=== PATIENT | male | born 1980 | race Caucasian/White ===

== ENCOUNTER 2016-10-24 19:20 | Emergency (ER) | payer SELFPAY ==
[~2016-10-24] VITALS: Ht 180.3 cm; Wt 100.0 kg
--- OUTSIDE RECORDS SUMMARY | 2016-10-24 19:26 | XMS REPORT | Summary of Care ---
Author Author Naseem Romero M.D. Organization Unknown Address Unknown Phone Unavailable Care Team Providers Care Quality Assurance Supervisor Final Name Role Phone Naseem Romero M.D. Unavailable Unavailable Naseem Romero Unavailable Unavailable Unavailable Unavailable Functional Status Name Dates Details Functional status health issues are not documented Status: Name Dates Details Cognitive status health issues are not documented Status: Problems Name Dates Details Cerumen impaction (380.4, H61.20) Status: Active Chest pain (786.50, R07.9) Status: Active Medications Name Dates Details Doxycycline Hyclate 100 MG Oral Capsule TAKE 1 CAPSULE EVERY 12 HOURS DAILY. Quantity: 20 Refills: 2 Naesem Romero M.D. Start 04-May-2016 Active Chantix Starting Month Mario 0.5 MG X 11 & 1 MG X 42 Oral Tablet TAKE ONE 0.5MG TABLET DAILY ON DAYS 1-3, THEN ONE 0.5MG TABLET TWICE DAILY ON DAYS 4-7, THEN ONE 1MG TABLET TWICE DAILY THEREAFTER. Quantity: 1 Refills: 0 Naseem Romero M.D. Start 04-May-2016 Active Allergies and Adverse Reactions Name Dates Details No Known Drug Allergies (Allergy) Status: Active Procedures Procedure Dates Details BASIC METABOLIC PROFILE 1210 Ordered: 10-Jun-2016 Immunization Name Dates Details Immunizations not documented Social History Name Dates Details - Status: Name Dates Details Smoker. current status unknown Vital Signs Date Test Result Details No Known Vitals to report Results Date Description Value Details Results not documented Plan of Care Name Dates Details Planned Observations Planned Goals not documented Interventions Provided Labs/Procedures/ImagingBASIC METABOLIC PROFILE 1210; To be Done: 10 Jun 2016 Instructions Name Dates Details Instructions not documented Encounters Appointment; Lior Romero M.D. Encounter Diagnosis: Problem not documented On 12-May-2016 15:45 Appointment; Naseem Romero M.D. Encounter Diagnosis: Problem not documented On 04-May-2016 15:20 Appointment; Lior Romero M.D. Encounter Diagnosis: Problem not documented On 11:00 Appointment; Jenifer Champagne Encounter Diagnosis: Problem not documented On 13:00
[2016-10-24 19:32] VITALS: BP 127/84
[2016-10-24] MEDS ORDERED: HYDR-3702 PO (19:39)
[2016-10-24] MEDS ORDERED: AMOX500C5 PO (19:39)
== END 2016-10-24 19:50 | disposition home or self-care (01) ==
LOC: ED 19:22
DX: K02.9 Dental caries, unspecified (principal); F17.210 Nicotine dependence, cigarettes, uncomplicated
CPT/HCPCS: 99282; 99283

== ENCOUNTER 2016-10-28 00:41 | Emergency (ER) | payer SELFPAY ==
[~2016-10-28] VITALS: Ht 172.7 cm; Wt 96.9 kg
[~2016-10-28 00:41] MED LIST: AMOX500C5 PO; HYDR-3702 PO
--- OUTSIDE RECORDS SUMMARY | 2016-10-28 00:45 | XMS REPORT | Continuity of Care Document ---
Author Author [facility] Address Unknown Phone Unavailable Support Name Relationship Address Phone HAILE RAMIREZ DO Caregiver [address] [place], [place] [address] CRISTY GUNTER Next Of Kin [address] [address] Insurance Providers Payer Name Policy Number Subscriber Name Relationship Self Pay [employer] 18 Self / Same As Patient Advance Directives Directive Response Recorded Date/Time Advanced Directives No 10/24/16 7:32pm Chief Complaint and Reason for Visit Chief Complaint Dental Complaint Reason for Visit Toothache Problems Active Problems Medical Problem Onset Date Status Toothache Unknown Acute Medications Current Home Medications Medication Dose Units Route Directions Days/Qty Instructions Start Date Amoxicillin 500 Mg 500 Mg ORAL Three Times A Day 30 10/24/16 Acetaminophen/Hydrocodone Bitart 1 Each 1-2 Tab ORAL Every 6 Hours as needed for Pain 10/24/16 Social History Query Response Start Date Stop Date Smoking Status Current every day smoker Hospital Discharge Instructions No hospital discharge instructions. Plan of Care Discharge Date 10/24/16 7:50pm Disposition 01 HOME OR SELF-CARE Condition at Discharge Stable Instructions/Education Provided Amoxicillin Hydrocodone and Acetaminophen Dental Pain (DC) Prescriptions See Medication Section Additional Instructions/Education See your dentist as soon as possible. Call the dental office today to arrange follow up. Take the antibiotics for 10 full days. Take the pain medication as needed. You may also take ibuprofen for discomfort. Return to the ER if you are not improving over the next 48 hours. Some of your test results may not be complete prior to your leaving the Emergency Department. The Emergency Department is not authorized to give test results over the phone. Please contact the doctor's office listed in this packet of information for your final results. Follow up with your primary care physician or return to the Emergency Department for worsening or worrisome symptoms. * Emergency Department phone number: [phone], x [phone] MEDICAL RECORD If you need copies of your X-rays, call [phone]. If you need copies of your medical record, including lab results, a signed authorization for release of records will be required. A telephone call for release of Health Information is not allowed. BILLING Billing can sometimes be confusing and frustrating. To help avoid confusion in the future, please take a moment to acquaint yourself with the billing parties for services. SERVICE BILLING [facility] Emergency Room Services [facility] Physician Services [facility] X-rays [facility] [place] [facility] Patients will receive bills for services from the appropriate provider. If you have any questions about your [facility] bill, our staff will be happy to assist you. Please call [phone], and ask for the billing department. THANK YOU for choosing [facility] as your emergency care provider! Care Plan and Goals ~~Discharge Care Plan~~ Problem: Fractured tooth, abscess, or dental caries Goal: Decreased pain. Dental repair/extraction is completed by dentist. Instructions: Practice good oral hygiene. Take medications as prescribed. Follow up with your dentist as directed. Functional Status No functional status results. Allergies, Adverse Reactions, Alerts No known allergies. Immunizations No immunization records. Vital Signs Acute Vital Signs Vital Response Date/Time Temperature (Fahrenheit) 98.2 10/24/2016 7:32pm Pulse 72 bpm 10/24/2016 7:32pm Respirations 20 10/24/2016 7:32pm Height 5 ft 11 in Weight 220 lb Body Mass Index 30.0 kg/m^2 Results No known relevant diagnostic tests, laboratory data and/or discharge summary. Procedures No known history of procedures. Encounters Encounter Location Arrival/Admit Date Discharge/Depart Date Attending Provider Departed Emergency Room [facility] 10/24/16 7:22pm 10/24/16 7:50pm HAILE RAMIREZ DO Recent Diagnosis
[2016-10-28] MEDS ORDERED: CLIN-79 PO (01:22)
--- NOTE | 2016-10-28 01:32 | NUR ---
ASSISTED MD WITH DENTAL PROCEDURE. I & D'd ABSCESS TO RT LOWER JAW.
[2016-10-28] MEDS: DENTAL BOX (GENERAL DRUG SUPPLY CHARGE) MM ONE (01:33)
[2016-10-28] MEDS: CLINDAMYCIN 600 MG/4ML (CLEOCIN) VIAL IM ONE (01:40)
[2016-10-28] MEDS: oxyCODONE/ACETAMINOPHEN 5MG-325 MG (PERCOCET) TABLET PO ONE (01:40)
[2016-10-28 02:37] VITALS: BP 136/86
== END 2016-10-28 02:00 | disposition home or self-care (01) ==
LOC: ED 00:42
DX: K04.7 Periapical abscess without sinus (principal)
CPT/HCPCS: 40800; 96372; 99282; 99283

== ENCOUNTER 2016-12-05 13:28 | Emergency (ER) | payer SELFPAY ==
[~2016-12-05] VITALS: Ht 177.8 cm; Wt 99.0 kg
[~2016-12-05 13:28] MED LIST changes: +CLIN-79 PO
[2016-12-05] MEDS ORDERED: AZIT250T81 PO (14:58)
[2016-12-05] MEDS ORDERED: DEXAMETHASONE 4 MG/ML (DECADRON) 5ml VIAL IM ONE (15:00)
[2016-12-05 15:06] VITALS: BP 131/83
== END 2016-12-05 15:07 | disposition home or self-care (01) ==
LOC: EDUNIT# 13:28 → ED 13:30
DX: J20.8 Acute bronchitis due to other specified organisms (principal); J30.2 Other seasonal allergic rhinitis
CPT/HCPCS: 96372; 99282; J1100; 99283